=== PATIENT | female | born 1970 ===

== ENCOUNTER 2022-02-09 10:16 | Inpatient (IN) | payer OTHER ==
[~2022-02-09] VITALS: Ht 165.1 cm; Wt 83.5 kg
[2022-02-09] MEDS ORDERED: COZAAR50 MG PO (12:39)
[2022-02-09] MEDS ORDERED: SINGULAIR10 MG PO (12:39)
[2022-02-09] MEDS ORDERED: PANTOPRAZOLE SO40 M2 (12:40)
[2022-02-09] MEDS ORDERED: ZYRTEC10 M3 PO (12:40)
[2022-02-09] MEDS ORDERED: PEPCI PO (12:40)
[2022-02-09] MEDS ORDERED: VITAMIN D PO (12:41)
[2022-02-09] MEDS ORDERED: VITAMIN E PO (12:42)
[2022-02-09] MEDS ORDERED: VITAMIN B PO (12:42)
[2022-02-14] MEDS ORDERED: FAMOTIDINE40 MG (07:49)
[2022-02-14] MEDS ORDERED: COLESTIPOL HCL1 GM (07:50)
[2022-02-14] MEDS ORDERED: VITAMIN E200 UNI6 PO (07:50)
[2022-02-14] MEDS ORDERED: VITAMIN D31250 MCG PO (07:51)
[2022-02-14] MEDS ORDERED: VITAMIN B-121000 MC4 PO (07:52)
== END 2022-02-15 14:26 | disposition home or self-care (01) | DRG 395 ==
LOC: O/R 02-14 05:54 → SURH 02-14 10:30 → SURG 02-14 10:44 → SURH 02-14 12:30 → SURG 02-15 14:26
PROVIDERS: ADMIT Colon & Rectal Surgery; ATTEND Colon & Rectal Surgery
PROC: 0DBP8ZZ Excision of Rectum, Via Natural or Artificial Opening Endoscopic (ICD-10-PCS; principal; 2022-02-14 12:30)
DX: K62.1 Rectal polyp (principal); Z20.822 Contact with and (suspected) exposure to COVID-19